=== PATIENT | male | born 1960 | race Caucasian/White ===

== ENCOUNTER 2018-12-22 19:04 | Observation (INO) ==
[2018-12-22] MEDS ORDERED: ASPIRIN PO ONE (19:44)
[2018-12-22 20:08] LABS: INR 1.02; PROTIME 13.5 Seconds (11.0-16.0); PTT 30.6 Seconds (22.3-41.8)
[2018-12-22 20:16] LABS: BASO# 0.04 X1000 (0.0-0.2); BASO% 0.4 % (0.0-0.8); EOS# 0.33 X1000 (0.0-0.7); EOS% 3.5 % (0.0-10.0); HEMOGLOBIN 15.6 g/dL (14.0-18.0); IMM GRAN# 0.03 X1000 (0.0-0.04); IMM GRAN% 0.3 % (0.0-0.5); LYMPH# 2.95 X1000 (1.2-3.4); LYMPH% 31.2 % (20.5-51.1); MCH 28.7 PG (27-31); MCHC 33.2 g/dL (33-37); MCV 86.4 FL (81-99); MONO# 0.56 X1000 (0.11-0.59); MONO% 5.9 % (1.7-9.3); MPV 11.3 FL (7.4-10.4); NEUT# 5.56 X1000 (1.4-6.5); NEUT% 58.7 % (42.2-75.2); PLT 309 X1000 (130-400); RBC 5.44 XMIL (4.7-6.1); RDW 14.1 % (11.5-14.5); WBC 9.47 X1000 (4.8-10.8)
--- NOTE | 2018-12-22 20:17 | EKG Report ---
Test Performed on : 12/22/2018 7:07:22 PM Test Reason : cp Blood Pressure : / mmHG Vent. Rate : 065 BPM Atrial Rate : 065 BPM P-R Int : 198 ms QRS Dur : 108 ms QT Int : 410 ms P-R-T Axes : 052 -16 043 degrees QTc Int : 426 ms Sinus rhythm. with frequent premature ventricular complexes. Otherwise normal ECG When compared with ECG of 25-APR-2014 06:01, premature ventricular complexes. are now present Unconfirmed Result
[2018-12-22 20:28] LABS: AGAP 14; ALB/GLOB RATIO 1.4; ALBUMIN 4.7 g/dL (3.5-5.0); ALKALINE PHOSPHATASE 77 U/L (32-122); BUN 20 mg/dL (8-22); CALCIUM 9.7 mg/dL (8.8-10.2); CHLORIDE 100 mmol/L (98-107); COSMO 277; CREATININE 0.8 mg/dL (0.7-1.2); ESTIMATED GFR > 60; GLUCOSE 70 mg/dL (70-104); GOT 26 U/L (10-34); GPT 39 U/L (10-44); SODIUM 138 mmol/L (136-145); TCO2 24 mmol/L (25-35); TOTAL BILIRUBIN 0.31 mg/dL (0.20-1.00); TOTAL PROTEIN 8.1 g/dL (6.3-8.3)
--- NOTE | 2018-12-22 20:46 | Diag Imaging Result Doc PS360 ---
EXAM: CHEST-2 VIEWS HISTORY: cp TECHNIQUE: Two views COMPARISON: 04/25/2014 FINDINGS: The lungs are well expanded. The heart is not enlarged. The vessels are not distended. There are no infiltrates. No pleural effusions. IMPRESSION: No acute abnormality. Electronically signed by Frank Gonzalez 12/22/2018 8:44 PM
--- NOTE | 2018-12-22 22:20 | PROVIDER DOCUMENTATION ---
This chart was entered by Rosalind Weeks Scribe, acting as scribe for Quita Beavers MD. HPI-Chest Pain - General Chief Complaint: Chest Pain Stated Complaint: CHEST PAIN/ARM/SHOULDER/HISTORY Time Seen by Provider: 12/22/18 19:39 Source: patient Allergies/Adverse Reactions: Patient Allergies Allergy/AdvReac Type Severity Reaction Status Date / Time Penicillins Allergy RASH Verified 12/22/18 19:31 Home Medications: Home Medication List Medication Instructions Recorded Confirmed Last Taken Type Amlodipine [Norvasc] 10 mg PO DAILY 04/25/14 12/22/18 12/22/18 History Fexofenadine [Shanna] 180 mg PO QHS 04/25/14 12/22/18 12/21/18 History Isosorbide Mononitrate [Isosorbide 30 mg PO DAILY 04/25/14 12/22/18 12/22/18 History Mononitrate ER] LISINOpril [Prinivil] 10 mg PO DAILY 04/25/14 12/22/18 12/22/18 History Duloxetine HCl 30 mg PO DAILY 12/22/18 12/22/18 12/22/18 History Escitalopram [Lexapro] 10 mg PO DAILY 12/22/18 12/22/18 12/22/18 History Glimepiride 2 mg PO BID 12/22/18 12/22/18 12/22/18 History Pioglitazone HCl 30 mg PO BID 12/22/18 12/22/18 12/22/18 History Pravastatin Sodium 10 mg PO EVERY OTHER DAY 12/22/18 12/22/18 12/21/18 History - History of Present Illness-CP Nature of Presenting Problem: pt is a 58 yr old male presenting with 1 day complaint of sharp, constant left chest pain, intermittent nausea and headache. pt admits hx of angina. He states that pain radiates to his left arm. pt denies any shortness of breath, no known injury. He states that he has had episodes like this about 11 years ago. THey did a cardiac cath at that time and they told him that he had "slow flow" in some of his arteries and placed him on Norvasc and Imdur. He states that he hasnt had any issues until recently. His mother at 48 y.o of massive GA and his father had CHF and at 68. Patient has not had any other furhter cardiac workup since cath 11 years ago. Location: reports: other (left) Chest Pain Radiation: reports: arms (left), shoulders (left) Quality of Pain: reports: sharp Severity in ED: moderate Onset/Duration: 24 hours ago Timing: getting worse Context/Activities at Onset: reports: light activity Modifying Factors: improves with: nothing Associated Symptoms: reports: diaphoresis, headache, nausea. denies: dizziness, shortness of breath, vomiting Nitro Today/Relief: no nitro taken today Aspirin Treatment Today: no aspirin today Prior Chest Pain/Cardiac Workup: reports: angina Similar Symptoms Previously?: Yes Recently Seen Here or By Another Healthcare Provider: No Review of Systems - Adult - REVIEW OF SYSTEMS - ADULT Constitutional: denies: fever, fatique Eyes: denies: blurred vision, double vision Ears, Nose, Mouth & Throat: reports: no symptoms reported Cardiovascular: reports: chest pain. denies: edema, palpitations, syncope Respiratory: denies: cough, shortness of breath Gastrointestinal: reports: nausea. denies: abdominal pain, vomiting Genitourinary: reports: no symptoms reported Musculoskeletal: denies: back pain, joint pain, neck pain Integumentary: reports: no symptoms reported Neurological: reports: headache/migraines. denies: dizziness/vertigo, syncope Psychiatric: reports: no symptoms reported Endocrine: reports: no symptoms reported Hematologic/Lymphatic: reports: no symptoms reported Allergic/Immunologic: reports: no symptoms reported All Other Systems: Reviewed and Negative Past History - Adult - PAST MEDICAL HISTORY-ADULT Review of Records: reports: Old Records Reviewed, Nursing Assessment Review, Medications Reviewed, Social history reviewed & non-contributory. Major Childhood Illnesses: reports: denies history Cardiovascular: reports: angina, HTN Respiratory: reports: denies history Gastrointestinal: reports: denies history Obstetrical/Gynecological: reports: denies history Genitourinary: reports: denies history Musculoskeletal: reports: denies history Neurological: reports: denies history Endocrine/Immune: reports: denies history, Diabetes Other Conditions: reports: denies history - PRIOR SURGERIES/PROCEDURES Surgical/Procedure History: reports: cholecystectomy - PRIOR HOSPITALIZATIONS Prior Hospitalizations: reports: none - IMMUNIZATION STATUS Childhood Immunizations: UTD Flu Vaccine: UTD - FAMILY HISTORY Family History: diabetes, CAD under 55yo - SOCIAL HISTORY Smoking: quit greater than 1 year Substance Use: denies Living Situation: family Physical Exam-General - PHYSICAL EXAM-ADULT Initial Vital Signs Reviewed: Yes - CONSTITUTIONAL General Appearance: appears well, alert, mild distress (uncomfortable appearing) , obese - EYES Eyes: PERRL/EOMI - HEAD, EARS, NOSE, MOUTH & THROAT HENMT: normocephalic/atraumatic - NECK Neck: supple, normal inspection - RESPIRATORY Respiratory: chest non-tender, lungs clear, normal breath sounds, no respiratory distress, no accessory muscle use - CARDIOVASCULAR Cardiovascular: normal peripheral pulses, regular rate, rhythm, no edema - GASTROINTESTINAL (ABDOMEN) Abdominal Exam: normal bowel sounds, non tender, soft - MUSCULOSKELETAL Back Exam: normal inspection Extremity: normal range of motion, non-tender, normal gait, normal inspection, no pedal edema - SKIN Integumentary: normal color, normal turgor, warm/dry - NEUROLOGIC Neurologic: grossly normal - PSYCHIATRIC Psych/Mental Status: normal mood/affect, normal thought content, normal thought process, oriented x 3 - HEART Score HEART Score: History: Highly Suspicious HEART Score: ECG: Normal HEART Score: Age: 45-65 Years HEART Score: Risk Factors for Atherosclerotic Disease: > or = 3 Risk Factors or History of Atherosclerotic Disease HEART Score: Troponin: < or = Normal Limit Total HEART Score:: 5 Progress - PLAN OF CARE/RESULTS Progress/Plan/Lab Results: Vital Signs - 8 hr 12/22/18 19:05 Temperature 98.2 F Pulse Rate 64 Respiratory Rate 18 Blood Pressure 129/87 O2 Sat by Pulse Oximetry 95 Laboratory Results - last 24 hr 12/22/18 12/22/18 12/22/18 19:22 19:22 19:22 WBC 9.47 RBC 5.44 Hgb 15.6 Hct 47.0 MCV 86.4 MCH 28.7 MCHC 33.2 RDW Std Deviation 14.1 Plt Count 309 MPV 11.3 H Immature Gran % (Auto) 0.3 Neut % (Auto) 58.7 Lymph % (Auto) 31.2 [place] % (Auto) 5.9 Eos % (Auto) 3.5 Baso % (Auto) 0.4 Immature Gran # (Auto) 0.03 Neut # (Auto) 5.56 Lymph # (Auto) 2.95 [place] # (Auto) 0.56 Eos # (Auto) 0.33 Baso # (Auto) 0.04 PT INR PTT (Actin FS) Sodium 138 Potassium 4.0 Chloride 100 Carbon Dioxide 24 L Anion Gap 14 BUN 20 Creatinine 0.8 Estimated GFR/1.73 m2 > 60 BUN/Creatinine Ratio 25 Glucose 70 Calculated Osmolality 277 Calcium 9.7 Total Bilirubin 0.31 AST 26 ALT 39 Alkaline Phosphatase 77 Troponin T [id number] Pept 57 Total Protein 8.1 Albumin 4.7 Globulin 3.4 Albumin/Globulin Ratio 1.4 12/22/18 12/22/18 19:22 19:22 WBC RBC Hgb Hct MCV MCH MCHC RDW Std Deviation Plt Count MPV Immature Gran % (Auto) Neut % (Auto) Lymph % (Auto) [place] % (Auto) Eos % (Auto) Baso % (Auto) Immature Gran # (Auto) Neut # (Auto) Lymph # (Auto) [place] # (Auto) Eos # (Auto) Baso # (Auto) PT 13.5 INR 1.02 PTT (Actin FS) 30.6 Sodium Potassium Chloride Carbon Dioxide Anion Gap BUN Creatinine Estimated GFR/1.73 m2 BUN/Creatinine Ratio Glucose Calculated Osmolality Calcium Total Bilirubin AST ALT Alkaline Phosphatase Troponin T < 0.010 [id number] Pept Total Protein Albumin Globulin Albumin/Globulin Ratio Orders Category Date Time Status Admit - [facility] Routine AdmDCTranf 12/22/18 23:26 Active FSBS/Accucheck Result AC + HS Care 12/22/18 23:26 Active Notify MD if DIRECTED Care 12/22/18 23:26 Active Nursing- MD Consult Request ROUTINE Care 12/22/18 23:26 Active Saline Loc DIRECTED Care 12/22/18 23:26 Active Vital Signs Order Q 4-HR ASSESS Care 12/22/18 23:26 Active Z-Document. for Tele Applied ORDERED Care 12/22/18 23:26 Active MD [Physician/Provider Consults] Routine Cons 12/22/18 23:26 Ordered Physician/Provider Consults Routine Cons 12/22/18 23:26 Ordered NPO Diet 12/23/18 00:01 Active CHEST-2 VIEWS [RAD] Stat Exams 12/22/18 19:41 Completed BASIC METABOLIC PANEL [CHEM] Routine Lab 12/22/18 23:43 Received CBC WITH ELECTRONIC DIFF [HEME] Routine Lab 12/23/18 06:00 Ordered CBC WITH ELECTRONIC DIFF [HEME] Stat Lab 12/22/18 19:22 Completed CK PROFILE [SP CHEM] Q8H Lab 12/22/18 23:43 Received CK PROFILE [SP CHEM] Q8H Lab 12/23/18 07:26 Ordered CK PROFILE [SP CHEM] Q8H Lab 12/23/18 15:26 Ordered COMPREHENSIVE METABOLIC PANEL [CHEM] Stat Lab 12/22/18 19:22 Completed LIPID PROFILE W/CALC LDL [LIPIDS] Routine Lab 12/23/18 06:00 Ordered PRO B-NATRIURETIC PEPTIDE Stat Lab 12/22/18 19:22 Completed PROTIME WITH INR [COAG] Stat Lab 12/22/18 19:22 Completed PTT [COAG] Stat Lab 12/22/18 19:22 Completed TROPONIN T Q8H Lab 12/22/18 23:43 Received TROPONIN T Q8H Lab 12/23/18 07:26 Ordered TROPONIN T Q8H Lab 12/23/18 15:26 Ordered TROPONIN T Stat Lab 12/22/18 19:22 Completed Acetaminophen [Tylenol] Med 12/22/18 23:26 Active 650 mg PO Q6H PRN PRN Amlodipine [Norvasc] Med 12/23/18 09:00 Active 10 mg PO DAILY Aspirin Med 12/23/18 09:00 Active 325 mg PO DAILY Aspirin Med 12/22/18 19:44 Discontinued 325 mg PO NOW ONE Duloxetine [Cymbalta] Med 12/23/18 09:00 Active 30 mg PO DAILY Enoxaparin [Lovenox] Med 12/22/18 23:26 Active 40 mg SUBQ Q24H Insulin Human Regular [Humulin R] Med 12/23/18 07:00 Active See Protocol SUBQ 0700,1100,1600,2100 Isosorbide Mononitrate E.r. [Imdur] Med 12/23/18 09:00 Active 30 mg PO DAILY LISINOpril [Prinivil] Med 12/23/18 09:00 Active 10 mg PO DAILY Nitroglycerin Sl [Nitroglycerin] Med 12/22/18 23:26 Active 0.4 mg SL Q5M PRN PRN Omeprazole [Prilosec] Med 12/23/18 07:00 Active 20 mg PO DAILY@0700 Ondansetron [Zofran] Med 12/22/18 23:26 Active 4 mg IV Q4H PRN PRN PRAVAstatin [Pravachol] Med 12/24/18 09:00 Active 10 mg PO EVERY OTHER DAY Oxygen Device Routine Oth 12/22/18 23:26 Active Telemetry [OM.EQ] Routine Oth 12/22/18 23:26 Active EKG [EKG] Stat Ther 12/22/18 19:09 Draft Transfer/Admit Order [TRANSFER] Routine Transfer 12/22/18 22:12 Completed Patient with concerning sotry and family history. His heart score is 5. His troponin and EKG are negative for anything acute. Spoke to patient about admission for possible stress test in the AM and his and his agree. SPoke to Dr Clark, salesperson stereo equipment for hospitalist who accepted patient for admission. He is a Dr Packer patient and will likely transfer to his care in the AM. Further orders to be placed by hospitalist team. Result Diagrams: 12/22/18 19:22 12/22/18 19:22 - EKG 1 Time of EKG reading by physician:: 19:07 EKG Read and Signed by:: Quita Beavers EKG Interpretation (*Must complete 3 of following elements*): Abnormal Rate: 65 Rhythm: sinus with freq PVCs [place]: normal QRS: PVC's [place] Interval: normal ST Wave: normal - XRAY 1 XRAY Study: Chest Impression: Normal - CONSULTS/PCP/HOSPITALIST Notification #1 *Consult/PCP/Hospitalist*: Dr Clark Time Discussed: 21:15 Reason/Comments: discussed plan of care for pt admit Consult Disposition: Admit Departure - Departure Date of Disposition Decision: 12/22/18 Time of Disposition Decision: 21:20 DIAGNOSIS: Chest pain Disposition: ADMITTED INPATIENT 09 Certified Medical Emergency: Emergent Condition: Stable - Critical Care Note This patient required my direct & personal management of CC.: No Attestation - Physician/ NGOC Attestation Patient care was provided by Advanced Practice Provider:: No The physician spent face to face time with patient:: Yes Advanced Practice Provider documentation review:: Supervising physician onsite and consulted in the evaluation and care of this patient. The physician did have a face to face encounter with the patient. This chart was documented by the bienvenido bhagatibe, (Rosalind Weeks Scribe) and accurately reflects the services I performed and decisions made by me, Quita Beavers MD, as attested by the provider's signature.
--- NOTE | 2018-12-22 22:48 | HISTORY AND PHYSICAL ---
PRIMARY CARE PHYSICIAN: Dr. Dov Packer. CHIEF COMPLAINT: Chest pain. HISTORY OF PRESENTING ILLNESS: A 58-year-old male with a history of diabetes mellitus type 2, hypertension, hyperlipidemia, who presented to emergency department with 2 days history of having intermittent chest pain. He states that the pain was radiating to the left upper extremity and he was somewhat nauseated. The patient describes the chest pain as sharp, and it was progressive. The patient was seen in the ED and, due to his presenting symptoms, it was thought that we will place him for observation for further evaluation and management. At the time of my examination, patient denied any headache, fever, chills, hemoptysis, melena, weight changes, but complained of chest discomfort. PAST MEDICAL HISTORY: Include diabetes mellitus type 2, hypertension, hyperlipidemia. PAST SURGICAL HISTORY: Back surgery, right knee surgery, rhinoplasty, cholecystectomy, bilateral shoulder surgery. ALLERGIES: Penicillin. CURRENT MEDICATIONS: Amlodipine 10 mg p.o. daily, duloxetine 30 mg p.o. daily, Lexapro 10 mg p.o. daily, Shanna 180 mg p.o. at bedtime, glimepiride 2 mg p.o. b.i.d., isosorbide mononitrate 30 mg p.o. daily, lisinopril 10 mg p.o. daily, pioglitazone 30 mg p.o. b.i.d., pravastatin 10 mg p.o. daily. SOCIAL HISTORY: He is a former smoker. No history of alcohol or illicit drug use. FAMILY HISTORY: Positive for coronary disease in Mother and Father. REVIEW OF SYSTEMS: Fourteen-point review of system as listed in HPI. Other systems negative. PHYSICAL EXAMINATION: GENERAL: Cooperative, friendly male. He is resting comfortably now. VITAL SIGNS: Temperature 98.2 degrees, pulse 64, respiration 18, blood pressure 129/87. HEENT: Atraumatic, normocephalic. Extraocular movements intact. PERRLA. NECK: Supple. CHEST: Clear to auscultation. CARDIOVASCULAR: Regular rate and rhythm. S1, S2. ABDOMEN: Soft. Positive bowel sounds. EXTREMITIES: No edema. NEUROLOGIC: He is awake, alert, oriented x3. GENITOURINARY: No bladder distention. SKIN: Warm. LABORATORIES AND STUDIES: WBC 9.47, hemoglobin 15.6, hematocrit 47.0, platelets 309,000. Sodium 138, potassium 4.0, chloride 100, CO2 of 24, BUN is 20, creatinine 0.8. Glucose 70. Troponin 0.010. Chest x-ray, no acute abnormalities. EKG sinus rhythm. ASSESSMENT: A 58-year-old male with a history of diabetes mellitus type 2, hypertension, hyperlipidemia, who presented to the emergency department with 2 days history of having intermittent chest pain. He was evaluated in the emergency department. Due to his presenting symptoms, we will place him for observation for further evaluation and management. 1. Chest pain. 2. Diabetes mellitus type 2. 3. Hypertension. 4. Hyperlipidemia. PLAN: 1. We will admit patient to medical floor with telemetry. 2. We will continue with cardiac workup. Check EKG, serial cardiac enzymes. Have patient continue on aspirin. We will use sublingual nitroglycerin and morphine p.r.n. chest pain. 3. We will consult Cardiology. 4. We will monitor blood glucose and put patient on sliding scale insulin regimen. 5. Monitor blood pressure. Resume antihypertensive agents. 6. We will check a lipid profile. 7. Restart other home medications. 8. We will put patient on DVT prophylaxis with Lovenox. 9. We will continue to follow and reassess. Make further recommendation based on patient's clinical course. cc: Kp Clark MD
[2018-12-22] MEDS ORDERED: NITROGLYCERIN SL PRN (23:26)
[2018-12-22] MEDS ORDERED: TYLENOL PO PRN (23:26)
[2018-12-22] MEDS ORDERED: ZOFRAN IV PRN (23:26)
[2018-12-22] MEDS ORDERED: LOVENOX SUBQ SCH (23:26)
[2018-12-23 00:30] LABS: BUN 17 mg/dL (8-22); CALCIUM 9.8 mg/dL (8.8-10.2); CK PROFILE 274 U/L (24-204); CREATININE 0.8 mg/dL (0.7-1.2); ESTIMATED GFR > 60; GLUCOSE 88 mg/dL (70-104); TCO2 23 mmol/L (25-35)
[2018-12-23 00:43] LABS: CHLORIDE 104 mmol/L (98-107); POTASSIUM 3.9 mmol/L (3.5-5.1); SODIUM 139 mmol/L (136-145)
[2018-12-23 00:47] LABS: CK INDEX 2.3 (0.0-2.5)
[2018-12-23 00:57] LABS: AGAP 16
[2018-12-23 00:58] LABS: COSMO 279
[2018-12-23] MEDS: HUMULIN R SUBQ SCH ×3 (06:11→16:56)
[2018-12-23] MEDS ORDERED: PRILOSEC PO SCH (07:00)
[2018-12-23 07:27] LABS: BASO# 0.04 X1000 (0.0-0.2); BASO% 0.6 % (0.0-0.8); EOS# 0.37 X1000 (0.0-0.7); EOS% 5.1 % (0.0-10.0); HEMATOCRIT 44.2 % (42.0-52.0); HEMOGLOBIN 14.4 g/dL (14.0-18.0); LYMPH# 2.43 X1000 (1.2-3.4); LYMPH% 33.5 % (20.5-51.1); MCH 28.6 PG (27-31); MCHC 32.6 g/dL (33-37); MCV 87.9 FL (81-99); MONO# 0.47 X1000 (0.11-0.59); MONO% 6.5 % (1.7-9.3); MPV 11.1 FL (7.4-10.4); NEUT# 3.95 X1000 (1.4-6.5); NEUT% 54.3 % (42.2-75.2); PLT 273 X1000 (130-400); RBC 5.03 XMIL (4.7-6.1); RDW 13.9 % (11.5-14.5); WBC 7.26 X1000 (4.8-10.8)
[2018-12-23 07:43] LABS: CHOLESTEROL 144 mg/dL (0-200); HDL 25 mg/dL (35-55); LDL 95 mg/dL; TRIGLYCERIDES 119 mg/dL (39-160); VLDL 24 mg/dL
[2018-12-23 08:35] LABS: CK INDEX 2.2 (0.0-2.5); CK-MB 4.59 ng/mL (0.0-5.0)
[2018-12-23] MEDS ORDERED: CYMBALTA PO SCH (09:00)
[2018-12-23] MEDS ORDERED: IMDUR PO SCH (09:00)
[2018-12-23] MEDS ORDERED: ASPIRIN PO SCH (09:00)
[2018-12-23] MEDS ORDERED: NORVASC PO SCH (09:00)
[2018-12-23] MEDS ORDERED: PRINIVIL PO SCH (09:00)
--- NOTE | 2018-12-23 09:20 | PROGRESS NOTE ---
DATE: 12/23/2018 SUBJECTIVE: Mr. Naranjo was admitted to [facility] with unstable angina. He continues with persistent episodes of chest tightness and fullness in the left anterior chest with radiation to his neck. His symptoms have been occurring off and on for 2 days. His 1st 2 sets of cardiac enzymes were within normal limits. He has had a previous coronary arteriogram 11 years ago which demonstrated minimal if any blockages. It was felt that his chest pain at that time was due to coronary vasospasms. He does have a history of hypertension. His blood pressure is well controlled. Systolic blood pressures are ranging from 131 to 134 whereas his diastolic blood pressures are ranging in the 80s. OBJECTIVE: Temperature 98.8 degrees pulse respirations 20, BP 131/86. CV: Regular rate and rhythm. Lungs: Clear. Abdomen: Soft, nontender, with active bowel sounds. No hepatosplenomegaly. No abdominal bruits. ASSESSMENT/PLAN: 1. Unstable angina. He has had a previous coronary arteriogram which demonstrated minimal if any atherosclerotic disease. We will proceed with a [place] GXT with rest/ stress protocol. If he were to have any evidence of reversible ischemia we will make arrangements to transfer him to [place] for consideration of a cardiac catheterization. 2. Hypertension his blood pressure is stable. We will continue his current regimen of medications. cc: Stefan Packer MD
--- NOTE | 2018-12-23 15:19 | Diag Imaging Result Document ---
PROCEDURE NAME: MYOCARDIAL PERF SCAN, STR/REST - 12/23/2018 STUDY: Rest/stress treadmill exercise myocardial perfusion study. INDICATION: Chest pain. DESCRIPTION: The patient came into the nuclear laboratory, received resting injection of technetium 99 sestamibi 15.6 mCi. Multiple tomographic views of the cardiac structures were obtained at rest. Subsequently, the patient underwent treadmill exercise protocol. At peak exercise, injected with technetium 99 sestamibi 46.3 mCi. Multiple tomographic views of the cardiac structures were obtained following completion of the protocol. SUMMARY OF THE ELECTROCARDIOGRAPHIC PORTION OF THE STUDY: Resting ECG shows sinus rhythm, rate 62 beats per minute, resting blood pressure 132/78. Resting ECG shows no significant abnormality. The patient exercised on the treadmill using the standard José Luis protocol for 9 minutes. He completed three stages of José Luis protocol, achieving a maximum heart rate of 134 beats per minute, which is 81% of maximum predicted heart rate for his age. Peak blood pressure 174/88. The test was terminated because at peak exercise the patient reported chest pain on the left side of the chest of moderate severity associated with some dyspnea. He was injected at that time. ECG showed no ischemic changes. Peak exercise ECG showed sinus tachycardia without any ischemia. Occasional PVCs were noted. Following the completion of the test, the heart rate and blood pressure returned back to their baseline. No significant abnormalities during the recovery phase. The patient was given nitroglycerin. His exercise capacity is normal. Blood pressure response was physiologic. In summary, the electrocardiographic response to exercise is negative. The chest pain appears to be quite nonspecific. SUMMARY OF THE MYOCARDIAL PERFUSION PORTION OF THE STUDY: Poststress tomographic views of the left ventricle showed essentially normal myocardial perfusion. There is a little trivial basal inferolateral defect, very focal. The rest images showed normal perfusion. There is no evidence of any reversibility. Tiny, focal basal inferolateral defect noted. Polar plots reveal the same. There is really normal myocardial perfusion. The basal inferolateral defect that appears to be fixed is more than likely related to attenuation artifact. The patient weighs 285 pounds. The gated SPECT using the [employer] protocol shows resting ejection fraction of 69%. Poststress ejection fraction of 69%. The Myometrix protocol indicates a resting ejection fraction of 58% and poststress 69%. There is no wall motion abnormality. The lung/heart ratio is 0.38. TID is 0.9. SUMMARY: This study shows: 1. Normal electrocardiographic response to treadmill exercise protocol. The patient achieved 81% of maximum predicted heart rate for his age. Workload 10.1 METS. Blood pressure response is physiologic. Test terminated due to chest pain, however that is deemed to be atypical. 2. Essentially normal poststress myocardial perfusion scan. There is no scintigraphic evidence of effort induced myocardial ischemia. Trivial basal inferolateral defect likely indicative of attenuation artifact acknowledged. 3. Normal left ventricular systolic function, ejection fraction is 69%. Clinical correlation is recommended. cc: MD Stefan Pat MD
[2018-12-23 15:29] VITALS: BP 120/57
[2018-12-23] MEDS ORDERED: PNEUMOVAX 23 IM ONE (16:54)
[2018-12-24] MEDS ORDERED: PRAVACHOL PO SCH (09:00)
[2018-12-24] MEDS ORDERED: IMDUR PO SCH (09:00)
== END 2018-12-23 17:12 | disposition home or self-care (01) ==
LOC: ED 19:04 → 3N 19:04 → SUATTDRO 22:54
PROVIDERS: ADMIT Internal Medicine; ATTEND Internal Medicine